=== PATIENT | female | born 1985 | race Caucasian/White ===

== ENCOUNTER → 2017-09-06 | Emergency (ER) | payer OTHER ==
[~2017-09-06] VITALS: Ht 167.6 cm; Wt 63.5 kg
[~2017-09-06] MED LIST: ANALPRAM HC 2.5%4 GM TOP; BUCALSEP SPRAY30 ML MM; DOCUSATE SODIU100 MG PO; PRENATABS RX T1 EACH PO; SYNTHROID50 MCG
== END | disposition home or self-care (01) ==
LOC: ER 21:11
DX: B08.8 Other specified viral infections characterized by skin and mucous membrane lesions (principal)

== ENCOUNTER 2019-01-16 09:23 | Inpatient (IN) | payer OTHER ==
[~2019-01-16] VITALS: Ht 167.6 cm; Wt 82.1 kg
[2019-01-16] MEDS ORDERED: SYNTHROID75 MCG (10:21)
== END 2019-01-28 19:24 | DRG 807 ==
LOC: OB/GYN 01-21 09:22 → SURG-SUITE 01-26 12:47 → LDR 01-26 12:47 → SURG-SUITE 01-26 21:54
PROVIDERS: ADMIT Obstetrics & Gynecology
PROC: 10E0XZZ Delivery of Products of Conception, External Approach (ICD-10-PCS; principal; 2019-01-26)
PROC: 0HQ9XZZ Repair Perineum Skin, External Approach (ICD-10-PCS; 2019-01-26)
PROC: 3E033VJ Introduction of Other Hormone into Peripheral Vein, Percutaneous Approach (ICD-10-PCS; 2019-01-26)
PROC: 4A0HXFZ Measurement of Products of Conception, Cardiac Rhythm, External Approach (ICD-10-PCS; 2019-01-26)
DX: O70.1 Second degree perineal laceration during delivery (principal); Z37.0 Single live birth; Z3A.40 40 weeks gestation of pregnancy; Z22.330 Carrier of Group B streptococcus